=== PATIENT | male | born 1965 | race Caucasian/White ===

== ENCOUNTER 2018-10-07 04:21 | Emergency (ER) | payer MEDICARE, MEDICAID ==
[~2018-10-07] VITALS: Ht 167.6 cm; Wt 100.0 kg
[2018-10-07 04:26] VITALS: Ht 167.6 cm; Wt 100.0 kg
[2018-10-07] MEDS ORDERED: ACETAMINOPHEN 500 MG TAB PO STA (06:14)
--- NOTE | 2018-10-07 06:24 | ERD ---
ER Documentation Chief Complaint Chief Complaint states feels high blood pressure at home, c/o headache. hx of cva 5 yrs ago HPI 53-year-old gentleman who has a prior history of stroke uses a wheelchair for ambulation. Patient states that he noted last night that he had a headache. He usually has a headache when his blood pressure is elevated. He went to an urgent care to get checked out and they told him to go to the emergency room. He does not know the value. Here in the emergency room he is feeling much better. He does still have a very mild frontal headache. Headache is gradual in onset and similar to headaches that he has had in the past. The patient is concerned because he had a stroke 5 years ago and is asking about CT imaging of the brain. He denied any chest pain or shortness of breath. No fevers or chills. He states compliance with his blood pressure medication. ROS All systems reviewed and are negative except as per history of present illness. PMhx/Soc History of Surgery: No Anesthesia Reaction: No Hx Neurological Disorder: No Hx Respiratory Disorders: No Hx Cardiac Disorders: Yes (HTN) Hx Psychiatric Problems: No Hx Miscellaneous Medical Probl: No Hx Alcohol Use: No Hx Substance Use: No Hx Tobacco Use: No Smoking Status: Never smoker FmHx Family History: No diabetes Physical Exam Vitals Vital Signs Date Temp Pulse Resp B/P (MAP) Pulse Ox O2 O2 Flow FiO2 Time Delivery Rate 10/07/18 98.0 63 18 154/92 97 Room Air 05:40 (112) 10/07/18 98.0 65 18 175/91 97 04:26 (119) Physical Exam General: Well developed, well nourished, no acute distress Head: Normocephalic, atraumatic. Eyes: Pupils equally reactive, EOM intact ENT: Moist mucous membranes Neck: Supple, no lymphadenopathy Respiratory: Lungs clear bilaterally, no distress Cardiovascular: RRR, no murmurs, rubs, or gallops Abdominal: Soft, non-tender, non-distended, no peritoneal signs : Deferred MSK: No edema, no unilateral swelling Neurologic: Alert and oriented, motor examination is consistent with his baseline. No significant new focal deficits. Skin: No rash Psych: Normal mood Results 24 hrs Current Medications Medications Dose Sig/[place] Start Time Status Last (Trade) Ordered Route PRN Stop Time Admin Dose Reason Admin 1,000 mg ONCE STAT 10/07/18 DC 10/07/18 Acetaminophen PO 06:14 06:28 (Tylenol 10/07/18 06:15 Tab) Procedures/MDM EKG, MONITORS, & DIAGNOSTIC IMAGING: EKG done at triage. EKG: I reviewed and interpreted a 12-lead EKG. Rhythm: Normal sinus rhythm ST Changes: No contiguous ST segment elevations T waves: No contiguous T wave inversions Impression: No evidence of acute cardiac ischemia CT brain: No acute process per radiologist read MEDICAL DECISION MAKING: The patient's exam and history is consistent with likely hypertensive urgency without evidence of endorgan dysfunction. The patient normally has headaches though he is very concerned about his blood pressure and history of stroke. He is asking about CT imaging of the brain. We discussed risk benefits alternatives. It seems reasonable to rule out hemorrhagic process given his history though very low pretest mobility. Patient has no chest pain no exertional symptoms. EKG at triage shows no evidence of ischemia. No indication for troponin or other laboratory testing. Reassurance provided. Blood pressure now systolic 140s and symptoms dramatically improved. If CT is negative the patient can be safely discharged with close primary care follow-up. ER COURSE: * CT brain is negative. Patient remains well-appearing. Tylenol provided. CONSULTATION: None DISPOSITION PLAN: The patient does not have an identifiable emergent medical condition that warrants inpatient hospitalization at this time. The patient is deemed safe for discharge with outpatient follow-up. We discussed follow up with the patient's primary care doctor within 24 to 48 hours as needed. We also discussed return to the emergency room for worsening symptoms or worsening condition. Outpatient referral: None required Discharge Medications: None required Departure Diagnosis: Primary Impression: Asymptomatic hypertensive urgency Condition: Stable TIO GREENE MD Oct 07, 2018 06:24
[2018-10-07 07:29] VITALS: BP 143/92; PULSE 62; RESP 18
== END 2018-10-07 07:30 | disposition home or self-care (01) ==
LOC: E/R 04:21
DX: I16.0 Hypertensive urgency (principal); R51 Headache; I10 Essential (primary) hypertension
CPT/HCPCS: 70450; 93005